=== PATIENT | male | born 1950 | race Caucasian/White ===

== ENCOUNTER 2020-04-28 11:24 | Emergency (ER) | payer BC ==
[~2020-04-28] VITALS: Ht 175.3 cm; Wt 97.5 kg
[~2020-04-28 11:24] MED LIST: ALBU90OI6 INH; ANTIDEPRESSANT; ASCO500 PO; ASPI325 PO; ATOR20 PO; AZIT250 PO; BELSOMRA10 MG; BELSOMRA10 MG PO; BREO ELLIPTA 11 EACH IH; BUDE10.22; Bactrim Ds Tab1 EACH PO; CARI350 PO; CEPH500 PO; CYCL10 PO; DESO.25TC TOP; DIAZ5 PO; DIPATR PO; Diclofenac Pota50 MG PO; ESCI10 PO; ESOM20 PO; EZET10-40; FAMO20 PO; FENO160 PO; FEXO180; FLUSAL2505 INH; FLUT.05NI; GLUCHON PO; HYDACE5 PO; HYDR1TAB94 PO; L-LYSINE; L-LYSINE500 MG PO; LEVO750 PO; MOMENI; MULVITMIND PO; Neurontin 300300 MG PO; Norco 5-325 Ta1 EACH PO; OMEP20ER PO; ONDA8 PO; OXYACE5T PO; PARO20; PARO20 PO; PROM25 PO; Prednisone20 MG PO; ROSU10TA PO; SULTRIDS PO; Super B Comple150 MG PO; TAMS.4ER PO; TRAACE PO; VITB100 PO; XARELTO15 MG PO; XARELTO20 MG PO; XYZAL; ZOLP10 PO; ZOLP12.5 PO; ZORVOLEX35 MG PO; [UNRECOGNIZED DRUG - OTHER]; [UNRECOGNIZED DRUG - OTHER] PO
== END 2020-04-28 14:34 | disposition home or self-care (01) ==
LOC: ER 11:24
DX: M25.571 Pain in right ankle and joints of right foot (principal); Z79.899 Other long term (current) drug therapy; Z79.82 Long term (current) use of aspirin; J44.9 Chronic obstructive pulmonary disease, unspecified; F32.9 Major depressive disorder, single episode, unspecified; E78.00 Pure hypercholesterolemia, unspecified; Z87.891 Personal history of nicotine dependence
CPT/HCPCS: 73610; 99283-25

== ENCOUNTER 2021-10-06 01:34 | Emergency (ER) | payer BC ==
[~2021-10-06] VITALS: Ht 170.2 cm; Wt 99.8 kg
[2021-10-06] MEDS ORDERED: VENL150ER PO (02:08)
[2021-10-06] MEDS ORDERED: [UNRECOGNIZED DRUG - OTHER] PO (02:08)
[2021-10-06] MEDS ORDERED: POTA10T PO (02:09)
[2021-10-06] MEDS ORDERED: FERSU300 PO (02:09)
[2021-10-06] MEDS ORDERED: PANT40 PO (02:10)
[2021-10-06] MEDS ORDERED: Aspir 8181 MG PO (02:12)
[2021-10-06] MEDS ORDERED: CIME400 PO (02:12)
[2021-10-06] MEDS ORDERED: ANORO ELLIPTA1 EACH INH (02:13)
[2021-10-06] MEDS ORDERED: OXAP600 PO (02:14)
[2021-10-06] MEDS ORDERED: AZELASTINE137 MCG/01 (02:15)
[2021-10-06] MEDS ORDERED: GABA300 PO (02:16)
[2021-10-06] MEDS ORDERED: Flomax0.4 MG PO (02:17)
[2021-10-06] MEDS ORDERED: ROPI1 PO (02:17)
[2021-10-06] MEDS ORDERED: TRAZ50 PO (02:17)
[2021-10-06] MEDS ORDERED: BACL10 PO (02:18)
[2021-10-10] MEDS ORDERED: METPRE4DP PO (18:54)
== END 2021-10-06 04:26 | disposition home or self-care (01) ==
LOC: ER 01:34
DX: M54.50 Low back pain, unspecified (principal); G89.29 Other chronic pain; J44.9 Chronic obstructive pulmonary disease, unspecified; Z79.899 Other long term (current) drug therapy; Z79.82 Long term (current) use of aspirin; Z87.891 Personal history of nicotine dependence
CPT/HCPCS: 96374; 99284-25; A9270; J1885

== ENCOUNTER 2022-11-15 08:00 | Day surgery (SDC) | payer BC ==
[~2022-11-15] VITALS: Ht 175.3 cm; Wt 100.0 kg
[~2022-11-15 08:00] MED LIST changes: +ANORO ELLIPTA1 EACH INH; +AZELASTINE137 MCG/01; +Aspir 8181 MG PO; +BACL10 PO; +CIDAFLEX TABLE1 EACH PO; +CIME400 PO; +FERSU300 PO; +Flomax0.4 MG PO; +GABA300 PO; +Hair, Skin & N1 EACH PO; +METPRE4DP PO; -MULVITMIND PO; +OXAP600 PO; +PANT40 PO; +POTA10T PO; +ROPI1 PO; +TRAZ50 PO; +VENL150ER PO; +[UNRECOGNIZED DRUG - OTHER] PO; -[UNRECOGNIZED DRUG - OTHER] PO
[2022-11-15] MEDS ORDERED: Pulmicort Fle180 MCG INH (08:41)
[2022-11-15] MEDS ORDERED: LOSA25 PO (08:41)
[2022-11-15] MEDS ORDERED: ZYRTEC10 M2 PO (08:42)
[2022-11-15] MEDS ORDERED: Vitamin D1000 UNI1 PO (08:42)
[2022-11-15] MEDS ORDERED: FURO20 PO (08:43)
[2022-11-15] MEDS ORDERED: B COMPLEX FORM0.4 MG PO (08:45)
[2022-11-15] MEDS ORDERED: ZINC220 PO (08:45)
[2022-11-15] MEDS ORDERED: OXYC5 PO (08:46)
--- NOTE | 2022-11-15 10:20 | NUR ---
PATIENT ARRIVED VIA BED TO RECOVERY ROOM. PATIENT A/OX4 CONVERSING APPROPRIATELY. R GROIN SITE C/D/I, SOFT/TENDER, NO EVIDENCE OF HEMATOMA. VSS ON ROOM AIR. PATIENT COMPLAINING OF SOME CHRONIC KNEE PAIN. 650 MG OF ACETAMINOPHEN GIVEN WITH RELIEF.
--- NOTE | 2022-11-15 11:00 | NUR ---
PATIENT SAT UP 30 DEGREES IN BED. R GROIN SITE C/D/I, SOFT/TENDER, NO EVIDENCE OF HEMATOMA. VSS ON ROOM AIR.
--- NOTE | 2022-11-15 12:15 | NUR ---
PT AMB TO BATHROOM, GAIT STEADY; SITE WITHOUT SWELLING/HEMATOMA AFTER ACTIVITY.
--- NOTE | 2022-11-15 12:20 | NUR ---
ASSUMED CARE OF PT. PT AWAKE AND ORIENTED, DENIES PAIN POST PROCEDURE. MONITOR SR/STACH 90-100'S, B/P 103/75, SPO2 97% RA. R GROIN NO SWELLING/HEMATOMA, TEGADERM DRSG INTACT; RLE 2+ X2.
--- NOTE | 2022-11-15 12:49 | NUR ---
PT'S IN ROOM; PT WATCHING TV.
--- NOTE | 2022-11-15 13:15 | NUR ---
PT DRESSED SELF WITHOUT ISSUE, SITE UNCHANGED; IV REMOVED-CANNULA INTACT.
--- NOTE | 2022-11-15 13:30 | NUR ---
PT AND RECEIVED DISCHARGE INSTRUCTIONS, MED LIST AND AFTER CARE INSTRUCTIONS; VERBALIZED GOOD UNDERSTANDING. PT LEFT FACILITY VIA W/C, CONDITION STABLE.
== END 2022-11-15 13:42 | disposition home or self-care (01) ==
LOC: MHTC 08:00
DX: R06.02 Shortness of breath (principal); R94.39 Abnormal result of other cardiovascular function study; R94.31 Abnormal electrocardiogram [ECG] [EKG]; E66.9 Obesity, unspecified; E78.5 Hyperlipidemia, unspecified; G47.33 Obstructive sleep apnea (adult) (pediatric)
CPT/HCPCS: 76937; 93454; 99152; 99153; A9270; C1760; C1769; C1887; C1894; J1644; J2250; J3010; J7030; J7050; Q9967

== ENCOUNTER → 2024-04-24 | Outpatient (CLI) | payer OTHER ==
[~2024-04-24] MED LIST changes: +B COMPLEX FORM0.4 MG PO; +FURO20 PO; +LOSA25 PO; +OXYC5 PO; +Pulmicort Fle180 MCG INH; +Vitamin D1000 UNI1 PO; +ZINC220 PO; +ZYRTEC10 M2 PO
[2024-04-24 18:22] LABS: BASOPHILS ABSOLUTE AUTO 0.03 K/mm3 (0.00-0.23); BASOPHILS PERCENT AUTO 1 % (0-2); EOSINOPHILS ABSOLUTE AUTO 0.14 K/mm3 (0.00-0.68); EOSINOPHILS PERCENT AUTO 3 % (0-6); Hematocrit 33.7 % (37.0-53.0); Hemoglobin 11.3 g/dL (13.5-17.5); IMMATURE GRAN ABSOLUTE AUTO 0.01 K/mm3 (0.00-0.10); IMMATURE GRAN PERCENT AUTO 0 % (0-1); LYMPHOCYTES ABSOLUTE AUTO 1.43 K/mm3 (0.84-5.20); LYMPHOCYTES PERCENT AUTO 26 % (21-46); MONOCYTES ABSOLUTE AUTO 0.45 K/mm3 (0.16-1.47); MONOCYTES PERCENT AUTO 8 % (4-13); Mean Corpuscular HGB 31.1 pg (26.0-34.0); Mean Corpuscular HGB Conc 33.5 g/dL (31.5-36.5); Mean Corpuscular Volume 93 fL (80-100); Mean Platelet Volume 8.6 fL (9.1-12.4); NEUTROPHILS ABSOLUTE AUTO 3.55 K/mm3 (1.96-9.15); NEUTROPHILS PERCENT AUTO 63 % (41-73); Platelet Count 245 K/mm3 (150-400); RDW Coefficient Variation 13.8 % (11.7-14.2); Red Blood Cell Count 3.63 M/mm3 (4.30-5.90); White Blood Cell Count 5.61 K/mm3 (4.00-11.30)
[2024-04-24 18:32] LABS: Albumin, Blood 3.1 g/dL (3.4-5.0); Bilirubin, Total 0.3 mg/dL (0.1-1.0); Bun/Creatinine Ratio 12.1 (12.0-20.0); Calcium, Blood 8.6 mg/dL (8.5-10.1); Creatinine, Blood 0.99 mg/dL (0.60-1.20); Globulin, Blood 3.2 g/dL (2.2-4.0); Potassium, Blood 3.9 mmol/L (3.5-5.5); Total Protein, Blood 6.3 g/dL (6.4-8.2)
== END ==
LOC: LAB 18:16 → LAB SHORT 18:16
PROVIDERS: Emergency Medicine
DX: R07.9 Chest pain, unspecified (principal)
CPT/HCPCS: 80053; 83880; 84484; 85025; 85379